=== PATIENT | male | born 1975 | race Caucasian/White ===

== ENCOUNTER 2017-03-17 17:24 | Emergency (ER) | payer MEDICAID ==
[~2017-03-17] VITALS: Ht 175.3 cm; Wt 75.0 kg
[2017-03-17 17:28] VITALS: Ht 175.3 cm; Wt 75.0 kg
[2017-03-17] MEDS ORDERED: NICARDipine HCL 30 MG CAPSULE PO ONE (18:00)
[2017-03-17] MEDS ORDERED: LORAZEPAM 1 MG TAB PO ONE (18:30)
--- NOTE | 2017-03-17 18:41 | RADRPT ---
PROCEDURE: CT Head without. CLINICAL INDICATION: Headache. TECHNIQUE: The study was performed utilizing a multi-slice, multidetector CT scanner. Direct spira l 1 mm axial sections were obtained through the head without the use of intravenous contrast materia l. 1 or more of the following dose reduction techniques were utilized: Automated exposure control, adjustment of the mA and/or kV according to patient's size, iterative reconstruction technique. Co eliel and sagittal reformations were obtained. The images were reviewed on a PACS workstation. RADIATION DOSE: CTDIvol: 43.3 mGyDLP: 720.2 mGy-cm COMPARISON: No prior studies are available for comparison. FINDINGS: There is no intracranial hemorrhage, extra-axial fluid collection, mass lesion, midline shift or hyd rocephalus. The ventricles, sulci and cisterns are within normal limits. The white matter is unrem arkable. The sánchez-white matter differentiation is preserved. The basal cisterns are patent. The m idline structures are intact. The orbits, calvarium and extracranial soft tissues are normal in mauricio earance. The visualized paranasal sinuses, mastoid air cells and middle ear cavities are normally ae rated. IMPRESSION: 1. No acute intracranial abnormality. No intracranial hemorrhage, extra-axial fluid collection, ma ss lesion or hydrocephalous. RPTAT: HGAS .Will Kemp MD, MD Date Time Electronically viewed and signed by .Will Kemp MD, on 03/17/2017 18:41 .S/
[2017-03-17] MEDS ORDERED: HYD25 PO (19:19)
--- NOTE | 2017-03-17 19:26 | ERD ---
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 The patient is very limited and difficult historian who appears to have possible undiagnosed underlying psychiatric illness. The patient states that prior to arrival he started to feel a headache that was gradual in onset frontal and dull. He started to note that he had a weird sensation in his body and started to have paresthesias occasionally to his right arm and face but occasionally everywhere. His blood pressure is noted to be in the 200s in the field. He denied any chest pain or shortness of breath, no pleuritic pain. No slurred speech, no motor weakness and no ataxia. The patient has noted that he has been told his blood pressure is been in the 200s before. He is not sure if he was told he should be taking blood pressure medications. ROS All systems reviewed and are negative except as per history of present illness. Medications Home Meds Active Scripts Hydrochlorothiazide* (Hydrochlorothiazide*) 25 Mg Tab, 25 MG PO DAILY, #30 TAB Prov:SAUL HUTTON MD 03/17/17 FmHx Family History: No diabetes Physical Exam Vitals Vital Signs Date Time Temp Pulse Resp B/P Pulse Ox O2 Delivery O2 Flow Rate FiO2 03/17/17 18:42 103 20 219/114 100 Room Air 03/17/17 17:28 98.1 114 16 224/122 100 Physical Exam General: Well developed, well nourished, no acute distress Head: Normocephalic, atraumatic. Eyes: Pupils equally reactive, EOM intact ENT: Moist mucous membranes Neck: Supple, no lymphadenopathy Respiratory: Lungs clear bilaterally, no distress Cardiovascular: RRR, no murmurs, rubs, or gallops Abdominal: Soft, non-tender, non-distended, no peritoneal signs : Deferred MSK: No edema, no unilateral swelling, 5/5 strength Neurologic: Alert and oriented, moving all extremities, normal speech he repeats himself but otherwise normal, no focal weakness, no cerebellar signs, normal rapid alternating movements, no pronator drift Skin: No rash Psych: Odd affect Results 24 hrs Current Medications Medications (Trade) Dose Ordered Sig/Jin Route PRN Reason Start Time Stop Time Status Last Admin Dose Admin Nicardipine HCl (Cardene) 30 mg ONCE ONCE PO 03/17/17 18:00 03/17/17 18:01 DC 03/17/17 17:58 Lorazepam (Ativan) 1 mg ONCE ONCE PO 03/17/17 18:30 03/17/17 18:31 DC 03/17/17 18:34 Labetalol HCl (Labetalol) 20 mg ONCE ONCE IV 03/17/17 19:30 03/17/17 19:31 Procedures/MDM EKG, MONITORS, & DIAGNOSTIC IMAGING: EKG: I reviewed and interpreted a 12-lead EKG. Rhythm: Sinus tachycardia Ectopy: None Intervals: No abnormalities ST segments: No elevations or depressions T waves: No contiguous inversions CT brain: No acute intracranial process per radiology MEDICAL DECISION MAKING: Patient's blood pressure was elevated (>120/80) but appears stable without evidence of hypertensive emergency or urgency. The patient was counseled about the risks of hypertension and urged to pursue outpatient monitoring and therapy within a week with their primary care physician. The patient presents with elevated blood pressure. Describe paresthesias and headache but otherwise has a nonfocal exam. The patient has an odd affect that appears to be more a viral and possibly related to underlying psychiatric illness. I do not believe his symptoms are consistent with PRES. however, I do believe a CT of the brain would be appropriate. During the patient's ER course he states that his symptoms have normalized. He verbalizes that he was in a verbal altercation with his and that may have gotten him upset. He denies any drugs or alcohol though slight tachycardia suggests agitation versus potential sympathomimetic. I do not believe his symptoms are consistent with a ischemic stroke and do not believe inpatient hospitalization or MRI imaging are necessary at this time. Outpatient follow-up with primary care physician is appropriate. Given the patient's significant blood pressure elevation oral lowering of blood pressure would be appropriate. ER COURSE: Patient was given Cardene and Ativan. The patient states dramatic improvement and normalization of symptoms. He only has a mild 1 out of 10 headache at this time. The patient's repeat neurologic exam is again benign. His blood pressure remains elevated and IV was established and he was given 20 mg of labetalol. If there is a reduction of mean arterial pressure by 20% I believe he can be safely discharged home with initiation of hydrochlorothiazide. The patient was endorsed to Dr. Umana to follow-up and anticipate discharge. I kept the patient and/or family informed of laboratory and diagnostic imaging results throughout the emergency room course. DISPOSITION PLAN: We discussed follow up with the patient's primary care doctor within 24 to 48 hours as needed. We also discussed return to the emergency room for worsening symptoms or worsening condition. Outpatient referral: Primary care Discharge Medications: Hydrochlorothiazide 25 mg once daily Departure Diagnosis: Primary Impression: Hypertensive urgency Condition: Stable Patient Instructions: Hypertension, New (Begin Treatment) Referrals: [facility] YOU HAVE RECEIVED A MEDICAL SCREENING EXAM AND THE RESULTS INDICATE THAT YOU DO NOT HAVE A CONDITION THAT REQUIRES URGENT TREATMENT IN THE EMERGENCY DEPARTMENT. FURTHER EVALUATION AND TREATMENT OF YOUR CONDITION CAN WAIT UNTIL YOU ARE SEEN IN YOUR DOCTORS OFFICE WITHIN THE NEXT 1-2 DAYS. IT IS YOUR RESPONSIBILITY TO MAKE AN APPOINTMENT FOR FOLOW-UP CARE. IF YOU HAVE A PRIMARY DOCTOR --you should call your primary doctor and schedule an appointment IF YOU DO NOT HAVE A PRIMARY DOCTOR YOU CAN CALL OUR PHYSICIAN REFERRAL HOTLINE AT IF YOU CAN NOT AFFORD TO SEE A PHYSICIAN YOU CAN CHOSE FROM THE FOLLOWING [facility] [address] [facility]. [facility] [address] [facility] [facility] [address] [facility] [facility] [address] [facility]. [facility] [address] [facility] [facility]. [address] [facility]. [facility] YOU HAVE RECEIVED A MEDICAL SCREENING EXAM AND THE RESULTS INDICATE THAT YOU DO NOT HAVE A CONDITION THAT REQUIRES URGENT TREATMENT IN THE EMERGENCY DEPARTMENT. FURTHER EVALUATION AND TREATMENT OF YOUR CONDITION CAN WAIT UNTIL YOU ARE SEEN IN YOUR DOCTORS OFFICE WITHIN THE NEXT 1-2 DAYS. IT IS YOUR RESPONSIBILITY TO MAKE AN APPOINTMENT FOR FOLOW-UP CARE. IF YOU HAVE A PRIMARY DOCTOR --you should call your primary doctor and schedule and appointment IF YOU DO NOT HAVE A PRIMARY DOCTOR YOU CAN CALL OUR PHYSICIAN REFERRAL HOTLINE AT . IF YOU CAN NOT AFFORD TO SEE A PHYSICIAN YOU CAN CHOSE FROM THE FOLLOWING [facility] INSTITUTIONS: [facility] [address] [place] [address] [facility] [address] [place] [address] [facility] [address] [place] [address] Additional Instructions: It is very important to keep a record of your blood pressure. He need to follow -up with primary care physician. Return for any worsening headache, slurred speech, motor weakness. SAUL HUTTON MD Mar 17, 2017 19:26
[2017-03-17] MEDS ORDERED: LABETALOL HCL 20MG INJ IV ONE (19:30)
[2017-03-17] MEDS ORDERED: MTF1000T PO (20:15)
[2017-03-17] MEDS ORDERED: ASPI81TA3 PO (20:16)
[2017-03-17] MEDS ORDERED: GLIP5TAB13 PO (20:16)
[2017-03-17 20:23] VITALS: BP 179/98; PULSE 99; RESP 17
[2017-03-21] MEDS ORDERED: HYDR-842 PO (15:15)
== END 2017-03-17 20:24 | disposition home or self-care (01) ==
LOC: E/R 17:24
DX: I16.0 Hypertensive urgency (principal); I10 Essential (primary) hypertension
CPT/HCPCS: 70450; 93005; 96374; Z7502; Z7610

== ENCOUNTER 2017-03-21 14:10 | Emergency (ER) | END 2017-03-21 15:30 | disposition home or self-care (01) | DX: F41.9 Anxiety disorder, unspecified (principal); I10 Essential (primary) hypertension; F17.210 Nicotine dependence, cigarettes, uncomplicated; R40.2142 Coma scale, eyes open, spontaneous, at arrival to emergency department; R40.2242 Coma scale, best verbal response, confused conversation, at arrival to emergency department; R40.2362 Coma scale, best motor response, obeys commands, at arrival to emergency department; Z79.82 Long term (current) use of aspirin; Z79.84 Long term (current) use of oral hypoglycemic drugs | CPT/HCPCS: 93005; Z7502; Z7610 ==